=== PATIENT | female | born 1955 | race Caucasian/White ===

== ENCOUNTER → 2017-05-04 | Outpatient (CLI) | payer OTHER | LOC: FIMAGING 13:40 | PROVIDERS: ATTEND Internal Medicine | DX: R14.0 Abdominal distension (gaseous) (principal); N88.8 Other specified noninflammatory disorders of cervix uteri; Z78.0 Asymptomatic menopausal state ==

== ENCOUNTER 2017-05-07 15:24 | Emergency (ER) | payer OTHER ==
[2017-05-07 16:01] VITALS: RESP 18
--- NOTE | 2017-05-07 17:56 | CPEKG ---
Heart Rate: 63 RR Interval: 952 P-R Interval: 160 QRSD Interval: 94 QT Interval: 416 QTC Interval: 426 P Coral: 81 QRS Coral: 79 T Wave [place]al: 74 EKG Severity - NORMAL ECG - EKG Impression: SINUS RHYTHM Electronically Signed By: Maikol Epstein 07-May-2017 21:09:37
--- NOTE | 2017-05-07 18:05 | EDPHY ---
H & P Time Seen by Provider: 05/07/17 18:03 HPI/ROS: Chief complaint. Low blood pressure, feeling faint HPI. 61-year-old female presents with sense of being faint and lightheaded today. She has had similar symptoms over the past several weeks. She has been pale and tired. No fever cough. No chest pain or shortness of breath. She has right-sided abdominal pain. She was seen already for this by her PCP for bloating and abdominal pain. She had a pelvic ultrasound 3 does ago which was normal. Today she has diarrhea. No urinary symptoms though frequent UTIs. She felt that her blood pressure might be low as she was feeling lightheaded. ROS Constitutional. Lightheaded Eyes. no problems with vision ENT. no sore throat, no nasal drainage Cardiovascular. no chest pain Respiratory. no shortness of breath, no cough Abdominal. Right-sided abdominal pain with diarrhea . no problems urinating MS. no calf pain/swelling, no neck/back pain, no joint pain Skin. no rash Lymph. no swollen glands Neuro. no headache, no dizziness, no difficulty walking or with speech Past Medical/Surgical History: Past medical history breast cancer the, lymph node excision. Low-sodium Social History: , nonsmoker, no alcohol Smoking Status: Former smoker Physical Exam: General Appearance: Alert well-developed female mild distress vital signs are stable. Blood pressure 136/69 Eyes: Pupils equal and round no pallor or injection. ENT, Mouth: Mucous membranes are moist. Respiratory: There are no retractions, lungs are clear to auscultation. Cardiovascular: Regular rate and rhythm. Gastrointestinal: Abdomen is soft with tenderness in the right mid eye and at McBurney's point in the right lower quadrant. No masses. Normal bowel sounds Neurological: Awake and alert, sensory and motor exams grossly normal. Skin: Warm and dry, no rashes. Musculoskeletal: Neck is supple nontender. Extremities symmetrical, full range of motion. Psychiatric: Patient is oriented X 3, there is no agitation. Constitutional: Initial Vital Signs Temperature (C) 36.9 C 05/07/17 15:57 Heart Rate 78 05/07/17 15:57 Respiratory Rate 18 05/07/17 15:57 Blood Pressure 136/69 H 05/07/17 15:57 O2 Sat (%) 98 05/07/17 15:57 O2 Delivery Mode Room Air Allergies/Adverse Reactions: adhesive Allergy (Verified 05/07/17 16:01) Rash Latex, Natural Rubber Allergy (Verified 05/07/17 16:01) Home Medications: Medication Instructions Recorded NK [No Known Home Meds] 03/07/16 Medical Decision Making - Diagnostics EKG Interpretation: EKG interpreted by me shows normal sinus rhythm with normal interval and axis. QRS is normal. Slight ST elevation consistent with early repolarization. No arrhythmia. The rate is 72 Imaging Results: Imaging Impressions Abdomen CT 05/07/17 18:25 Impression: 1. Constipation-obstipation. 2. Normal appearance the retrocecal appendix. 3. Urinary bladder distention with mild pelvocaliectasis, left greater than right. Findings were discussed with PANCHO BENDER MD at 20:17, on 05/07/2017. CT abdomen reviewed by me and discussed with Dr. Bonilla significant for constipation Procedures: IV normal saline ED Course/Re-evaluation: Re-evaluation 8:25 p.m.. Patient is stable. The patient her and I discussed imaging, EKG, and lab results. We discussed treatment plan including criteria for return importance of follow-up and further evaluation. They expressed understanding and agreement Differential Diagnosis: I considered diverticulitis, small-bowel obstruction, pyelonephritis, appendicitis - Data Points Laboratory Results: Laboratory Results 05/07/17 18:05 05/07/17 18:05 05/07/17 05/07/17 05/07/17 18:09 18:05 18:05 WBC 6.24 10^3/uL 10^3/uL (3.80-9.50) RBC 4.57 10^6/uL 10^6/uL (4.18-5.33) Hgb 14.1 g/dL g/dL (12.6-16.3) Hct 42.2 % % (38.0-47.0) MCV 92.3 fL fL (81.5-99.8) MCH 30.9 pg pg (27.9-34.1) MCHC 33.4 g/dL g/dL (32.4-36.7) RDW 13.4 % % (11.5-15.2) Plt Count 200 10^3/uL 10^3/uL (150-400) MPV 10.1 fL fL (8.7-11.7) Neut % (Auto) 66.2 % % (39.3-74.2) Lymph % (Auto) 26.9 % % (15.0-45.0) [place] % (Auto) 5.1 % % (4.5-13.0) Eos % (Auto) 0.6 % % (0.6-7.6) Baso % (Auto) 1.0 % % (0.3-1.7) Nucleat RBC Rel Count 0.0 % % (0.0-0.2) Absolute Neuts (auto) 4.13 10^3/uL 10^3/uL (1.70-6.50) Absolute Lymphs (auto) 1.68 10^3/uL 10^3/uL (1.00-3.00) Absolute Monos (auto) 0.32 10^3/uL 10^3/uL (0.30-0.80) Absolute Eos (auto) 0.04 10^3/uL 10^3/uL (0.03-0.40) Absolute Basos (auto) 0.06 10^3/uL 10^3/uL (0.02-0.10) Absolute Nucleated RBC 0.00 10^3/uL 10^3/uL (0-0.01) Immature Gran % 0.2 % % (0.0-1.1) Immature Gran # 0.01 10^3/uL 10^3/uL (0.00-0.10) Sodium 137 mEq/L mEq/L (134-144) Potassium 4.1 mEq/L mEq/L (3.5-5.2) Chloride 102 mEq/L mEq/L (97-110) Carbon Dioxide 24 mEq/l mEq/l (22-31) Anion Gap 11 mEq/L mEq/L (8-16) BUN 9 mg/dL mg/dL (7-23) Creatinine 0.7 mg/dL mg/dL (0.6-1.0) Estimated GFR > 60 Glucose 88 mg/dL mg/dL (70-100) Calcium 9.3 mg/dL mg/dL (8.5-10.4) Total Bilirubin 1.3 mg/dL mg/dL (0.1-1.4) Conjugated Bilirubin 0.2 mg/dL mg/dL (0.0-0.5) Unconjugated Bilirubin 1.1 mg/dL mg/dL (0.0-1.1) AST 34 IU/L IU/L (14-46) ALT 35 IU/L IU/L (9-52) Alkaline Phosphatase 66 IU/L IU/L (38-126) Total Protein 7.1 g/dL g/dL (6.3-8.2) Albumin 4.3 g/dL g/dL (3.5-5.0) Lipase 157.0 IU/L IU/L (23-300) Urine Color PALE YELLOW Urine Appearance CLEAR Urine pH 7.0 (5.0-7.5) Ur Specific [place] 1.001 L (1.002-1.030) Urine Protein NEGATIVE (NEGATIVE) Urine Ketones NEGATIVE (NEGATIVE) Urine Blood NEGATIVE (NEGATIVE) Urine Nitrate NEGATIVE (NEGATIVE) Urine Bilirubin NEGATIVE (NEGATIVE) Urine Urobilinogen NEGATIVE EU EU (0.2-1.0) Ur Leukocyte Esterase NEGATIVE (NEGATIVE) Urine Glucose NEGATIVE (NEGATIVE) Medications Given: Discontinued Medications Sodium Chloride (Ns) 1,000 mls @ 0 mls/hr IV EDNOW ONE; Wide Open PRN Reason: Protocol Stop: 05/07/17 18:26 Last Admin: 05/07/17 18:33 Dose: 1,000 mls Departure - Departure Disposition: Home, Routine, Self-Care Clinical Impression: Abdominal pain Qualifiers: Abdominal location: right upper quadrant Qualified Code(s): R10.11 - Right upper quadrant pain Condition: Good Instructions: Constipation (ED) Additional Instructions: Increased fluids including fruit and prune juice. Milk of magnesia, magnesium citrate, para Colace from the grocery store. Return for worsening pain, fever, vomiting. Recheck in 2 days if not improved Referrals: Yaritza Foster MD [Primary Care Provider] - 2-3 days, if not improved
[2017-05-07] MEDS ORDERED: NS 1,000 ML IV ONE (18:25)
[2017-05-07 18:27] LABS: % IMMATURE GRANULYOCYTES 0.2 % (0.0-1.1); ABSOLUTE IMMATURE GRANULOCYTES 0.01 10^3/uL (0.00-0.10); ADD DIFF? NO; ADD MORPH? NO; ADD SCAN? NO; ATYPICAL LYMPHOCYTE FLAG 10 (0-99); FRAGMENT RBC FLAG 0 (0-99); HEMATOCRIT 42.2 % (38.0-47.0); HEMOGLOBIN 14.1 g/dL (12.6-16.3); LEFT SHIFT FLG 0 (0-99); LIPEMIA HEMOLYSIS FLAG 80 (0-99); MEAN CELL HEMOGLOBIN 30.9 pg (27.9-34.1); MEAN CELL HEMOGLOBIN CONCENTR. 33.4 g/dL (32.4-36.7); MEAN CELL VOLUME 92.3 fL (81.5-99.8); MEAN PLATELET VOLUME 10.1 fL (8.7-11.7); PLATELET CLUMPS FLAG 0 (0-99); PLATELET COUNT 200 10^3/uL (150-400); RED BLOOD CELL COUNT 4.57 10^6/uL (4.18-5.33); RED CELL DISTRIBUTION WIDTH 13.4 % (11.5-15.2)
[2017-05-07 18:42] LABS: ALANINE AMINOTRANSFERASE 35 IU/L (9-52); ALBUMIN 4.3 g/dL (3.5-5.0); ALKALINE PHOSPHATASE 66 IU/L (38-126); ANION GAP 11 mEq/L (8-16); ASPARTATE AMINOTRANSFERASE 34 IU/L (14-46); BILIRUBIN,TOTAL 1.3 mg/dL (0.1-1.4); BILIRUBIN-CONJUGATED 0.2 mg/dL (0.0-0.5); BILIRUBIN-UNCONJUGATED 1.1 mg/dL (0.0-1.1); CALCIUM 9.3 mg/dL (8.5-10.4); CARBON DIOXIDE 24 mEq/l (22-31); CHLORIDE 102 mEq/L (97-110); CREATININE 0.7 mg/dL (0.6-1.0); GLOMERULAR FILTRATION RATE > 60; GLUCOSE 88 mg/dL (70-100); POTASSIUM 4.1 mEq/L (3.5-5.2); SODIUM 137 mEq/L (134-144); TOTAL PROTEIN 7.1 g/dL (6.3-8.2)
[2017-05-07 19:09] LABS: COLOR PALE YELLOW; LEUKOCYTE ESTERASE,URINE NEGATIVE (NEGATIVE); NITRITE,URINE NEGATIVE (NEGATIVE)
[2017-05-07] MEDS ORDERED: IOPAMIDOL (ISOVUE-300) 100 ML BTL ONE (19:11)
[2017-05-07 21:13] VITALS: BP 99/57; PULSE 62; TEMP 98.6; O2SAT 94
== END 2017-05-07 21:12 | disposition home or self-care (01) ==
DX: R10.11 Right upper quadrant pain (principal); E86.9 Volume depletion, unspecified; Z85.3 Personal history of malignant neoplasm of breast; Z87.891 Personal history of nicotine dependence; Z91.040 Latex allergy status
CPT/HCPCS: Q9967